=== PATIENT | female | born 1995 | race Hispanic/Latino ===

== ENCOUNTER 2016-09-24 11:30 | Outpatient (CLI) | payer OTHER ==
[~2016-09-24] VITALS: Ht 157.5 cm; Wt 65.8 kg
[2016-09-24 11:45] VITALS: BP 125/54
[2016-09-24 13:10] VITALS: BP 117/63
[2016-09-24] MEDS ORDERED: PNV91TAB3 PO (13:46)
[2016-09-24 14:05] VITALS: BP 117/63
--- NOTE | 2016-10-01 09:30 | Physician Query-Final Dx ---
SARI SHOEMAKER 10/01/16 0930: Clinic Account Progress/Dx Physician Query: Please give diagnosis Date of Service Progress Note: Sari [phone] MICHELA ROMO MD 10/01/16 1743: Clinic Account Progress/Dx DIAGNOSIS: Diagnosis Labor contractions SARI SHOEMAKER Oct 01, 2016 09:30 MICHELA ROMO MD Oct 01, 2016 17:43
--- OUTSIDE RECORDS SUMMARY | 2016-10-10 15:17 | XMS REPORT | Continuity of Care Document ---
Author Author [facility] Organization [facility] Address Unknown Phone Unavailable Care Team Providers Care Brand Advocate Name Role Phone MICHELA ROMO MD PCP Insurance Providers Payer Name Policy Number Subscriber Name Relationship Self Pay Pending Magdalena Apprv [id number] Momo Estrada 18 Self / Same As Patient Advance Directives Directive Response Recorded Date/Time Advance Directives No 09/25/16 9:45am Health Care Power of Collections Representative No 09/25/16 9:45am Organ Donor No 09/25/16 9:45am Resuscitation Status Full Code 09/25/16 9:45am Chief Complaint and Reason for Visit Chief Complaint LEAKING FLUID,CONTRACTIONS Reason for Visit Blood type O+ anemia Rubella immune Second-degree perineal laceration during delivery Spontaneous vaginal delivery Problems Active Problems Medical Problem Onset Date Status Blood type O+ Unknown Acute anemia Unknown Acute Rubella immune Unknown Acute Second-degree perineal laceration during delivery Unknown Acute Spontaneous vaginal delivery Unknown Acute Medications Current Home Medications Medication Dose Units Route Directions Days/Qty Instructions Start Date Pnv95/Ferrous Fumarate/Fa 1 Each 1 Each Oral Daily 09/24/16 Ferrous Sulfate 325 Mg 325 Mg Oral Daily@07 30 09/27/16 Ibuprofen 600 Mg 600 Mg Oral Every 6 Hours as needed for Pain 60 09/27 Social History Social History Problem Response Recorded Date/Time Alcohol Use Denies Use 09/25/2016 11:27am Recreational Drug Use No 09/25/2016 11:27am Sexually Transmitted Disease No 09/25/2016 11:27am HIV/AIDS No 09/25/2016 11:27am Smoking Status Never a Smoker 09/25/2016 9:45am Sexually Transmitted Disease No 09/25/2016 11:27am Query Response Start Date Stop Date Smoking Status Never a Smoker Hospital Discharge Instructions Patient Instructions Physician Instructions New, Converted or Re-Newed RX: RX on Chart Goal/Follow Up: Follow up with Dr. Romo in 6 weeks for visit. Activity: Activity as Tolerated (avoid strenuous activity x 6 weeks) Driving Instructions: You May Drive Discharge Diet: Regular Diet Symptoms to Report to : Swelling Increased, Bleeding Excessive, Fever Over 101 Degrees F, Pain/Pressure in Chest, Cramps in Feet or Legs, Vaginal Discharge Foul, Dizziness/Fainting, Shortness of Breath For Any Problems or Questions: Contact Your Physician Care Plan Goal:: Follow up with Dr. Romo in 6 weeks for visit. Plan of Care Discharge Date 09/27/16 3:07pm Disposition 01 HOME, SELF-CARE Instructions/Education Provided VAGINAL DELIVERY DISCHARGE Prescriptions See Medication Section Referrals (Unspecified) - Reason(s) for Referral: Please call the [facility] at to schedule your 6 week follow up appointment with Dr. oRmo. Care Plan and Goals See Discharge Instructions Section Functional Status Query Response Date Recorded Patient Orientation Person Place Time Situation Normal For Age September 27, 2016 3:42pm Allergies, Adverse Reactions, Alerts No known allergies. Immunizations No immunization records. Vital Signs Acute Vital Signs Vital Response Date/Time Temperature (Fahrenheit) 98.6 degrees F (97.6 - 99.5) 09/27/2016 8:57am Temperature (Calculated Celsius) 37.39472 degrees C (36.4 - 37.5) 09/27/2016 8:57am Temperature Source Temporal 09/27/2016 1:07pm Pulse Rate (adult) 73 bpm (60 - 90) 09/27/2016 8:57am Respiratory Rate 18 bpm (12 - 24) 09/27/2016 8:57am O2 Sat by Pulse Oximetry 98 % (88 - 100) 09/27/2016 8:57am Blood Pressure 104/70 mm Hg 09/27/2016 8:57am Blood Pressure Mean 81 mm Hg 09/27/2016 8:57am Pain Numeric Pain Scale 0-No Pain 09/27/2016 1:07pm Height (Feet) 5 feet 09/25/2016 9:46am Height (Inches) 2.00 inches 09/25/2016 9:46am Height (Calculated Centimeters) 157.760358 cm 09/25/2016 9:46am Weight (Pounds) 144 pounds 09/25/2016 9:46am Weight (Ounces) 0.0 oz 09/25/2016 9:46am Weight (Calculated Grams) 59837.30 gm 09/25/2016 9:46am Weight (Calculated Kilograms) 65.563133 kilograms 09/25/2016 9:46am Calculated BMI 26.3 09/25/2016 9:46am Results Pending Laboratory Results Test Name Collection Date/Time Procedures No known history of procedures. Encounters Encounter Location Arrival/Admit Date Discharge/Depart Date Attending Provider Admitted Inpatient [facility] 09/25/16 9:59am LAWRENCE IBRAHIM DO Discharged Inpatient (obs) [facility] 09/24/16 11:30am 09/24/16 1:30pm MICHELA ROMO MD Recent Diagnosis Blood type O+ anemia Rubella immune Second-degree perineal laceration during delivery Spontaneous vaginal delivery
== END 2016-09-24 13:30 | disposition home or self-care (01) ==
LOC: LDRP 11:30 → UNDOADMOB 11:30 → WSo 11:30 → UNDOADMOB 11:34 → LDRP 11:34 → WSo 13:30 → UNDODISOB 13:30 → EDSTATUS 15:14
PROVIDERS: ATTEND Family Medicine
DX: O47.1 False labor at or after 37 completed weeks of gestation (principal); Z3A.39 39 weeks gestation of pregnancy
CPT/HCPCS: 99211; G0378

== ENCOUNTER 2016-09-25 09:38 | Inpatient (IN) | payer MEDICAID, OTHER ==
[~2016-09-25] VITALS: Ht 157.5 cm; Wt 65.3 kg
[2016-09-25] VITALS (23 sets, daily range): BP systolic 96–183; BP diastolic 51–92
[~2016-09-25 09:38] MED LIST: PNV91TAB3 PO
[2016-09-25] MEDS ORDERED: MINERAL OIL CONCENTRATE 99.9% 15 ML UDC TOP PRN (10:00)
[2016-09-25] MEDS ORDERED: D5 LR IV SOLUTION 1,000 ML IV SCH (10:00)
[2016-09-25 10:30] LABS: BASOPHILS % (AUTO) 0 % (0-10); EOSINOPHILS % (AUTO) 0 % (0-10); LYMPHOCYTES # (AUTO) 1.3 X 10^3 (1.0-4.0); LYMPHOCYTES % (AUTO) 15 % (12-44); MEAN CORPUSCULAR HEMOGLOBIN 29 PG (25-34); MEAN CORPUSCULAR HGB CONC 33 G/DL (32-36); MEAN CORPUSCULAR VOLUME 87 FL (80-99); MEAN PLATELET VOLUME 11.5 FL (7.4-10.4); MONOCYTES # (AUTO) 0.7 X 10^3 (0.0-1.0); MONOCYTES % (AUTO) 7 % (0-12); NEUTROPHILS # (AUTO) 6.9 X 10^3 (1.8-7.8); NEUTROPHILS % (AUTO) 77 % (42-75); PLATELET COUNT 150 10^3/uL (130-400); RED BLOOD COUNT 4.04 10^6/uL (4.35-5.85); RED CELL DISTRIBUTION WIDTH 15.1 % (10.0-14.5)
[2016-09-25] MEDS ORDERED: BUTORPHANOL INJ 2 MG/ML (STADOL) VIAL IV NR (10:30)
[2016-09-25] MEDS ORDERED: CATHETER FLUSH 10 ML SYR IV SCH ×2 (14:00→22:00)
[2016-09-25] MEDS ORDERED: BUTORPHANOL INJ 2 MG/ML (STADOL) VIAL IV ONE (15:15)
[2016-09-25] MEDS ORDERED: LIDOCAINE/EPI 1%-1:200,000 (XYLOCAINE) 30 ML VIAL ONE (15:29)
[2016-09-25] MEDS ORDERED: OXYTOCIN/NORMAL SALINE 500 ML IV ONE ×3 (15:29→18:06)
[2016-09-25] MEDS: SODIUM CHLORIDE IV NR ×3 (17:02→18:05)
[2016-09-25] MEDS: OXYTOCIN IV NR ×3 (17:02→18:05)
--- NOTE | 2016-09-25 18:14 | History & Physicial ([facility]) ---
HPI History of Present Illness: Rupture of membranes 1 hr prior to arrival. Contractions started yesterday. 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 Exam Limitations: language barrier Date seen by provider: Sep 25, 2016 Attending Physician Aubree Acosta Holly R MD Consult Date of Admission Sep 25, 2016 at 09:59 Home Medications Home Medications Reviewed patient Home Medication Reconciliation Form Allergies Coded Allergies: No Known Drug Allergies (Unverified , 09/24/16) CMA-Cozwqe-Kftwrq Hx Patient Social History Alcohol Use: Denies Use Recreational Drug Use: No Smoking Status: Never a Smoker Physical Abuse Screen: No Sexual Abuse: No Immunizations Up To Date Date of Influenza Vaccine: Jun 02, 2016 Past Medical History None Family Medical History Family History: Patient reports no known family medical history. Review of Systems ([facility]) Constitutional: no symptoms reported Respiratory: No cough, No dyspnea on exertion, No short of breath Cardiovascular: No chest pain, No edema, No palpitations Gastrointestinal: abdominal pain nausea Genitourinary: no symptoms reportedNo dysuria : Yes Expected Date of Delivery: Sep 30, 2016 Musculoskeletal: no symptoms reported Skin: no symptoms reported Psychiatric/Neurological: No Symptoms Reported Reviewed Test Results Reviewed Test Results Lab Laboratory Tests Test 09/25/16 10:10 Range/Units Basophils # (Auto) 0.0 0.0-0.1 10^3/uL Basophils (%) (Auto) 0 0-10 % Eosinophils # (Auto) 0.0 0.0-0.3 10^3/uL Eosinophils (%) (Auto) 0 0-10 % Hematocrit 35 35-52 % Hemoglobin 11.6 11.5-16.0 G/DL Lymphocytes # (Auto) 1.3 1.0-4.0 X 10^3 Lymphocytes (%) (Auto) 15 12-44 % Mean Corpuscular Hemoglobin 29 25-34 PG Mean Corpuscular Hemoglobin Concent 33 32-36 G/DL Mean Corpuscular Volume 87 80-99 FL Mean Platelet Volume 11.5 H 7.4-10.4 FL Monocytes # (Auto) 0.7 0.0-1.0 X 10^3 Monocytes (%) (Auto) 7 0-12 % Neutrophils # (Auto) 6.9 1.8-7.8 X 10^3 Neutrophils (%) (Auto) 77 H 42-75 % Platelet Count 150 130-400 10^3/uL Red Blood Count 4.04 L 4.35-5.85 10^6/uL Red Cell Distribution Width 15.1 H 10.0-14.5 % White Blood Count 9.0 4.3-11.0 10^3/uL Physical Exam-([facility]) Physical Exam Vital Signs VS - Last 72 Hours, by Label 09/25/16 09/25/16 09/25/16 09/25/16 09:45 10:30 11:00 11:05 Temp 97.9 97.2 Pulse 100 77 77 71 Resp 18 18 18 18 B/P 123/74 96/51 96/51 108/71 Pulse Ox 98 98 O2 Delivery Room Air Room Air Room Air Room Air 09/25/16 09/25/16 09/25/16 09/25/16 11:30 11:35 12:00 12:30 Pulse 78 Resp 18 B/P 106/68 O2 Delivery Room Air 09/25/16 09/25/16 09/25/16 09/25/16 12:35 13:00 13:30 14:00 Temp 97.1 Pulse 72 Resp 18 B/P 121/84 O2 Delivery Room Air 09/25/16 09/25/16 09/25/16 09/25/16 14:20 14:30 14:35 15:00 Temp 97.0 Pulse 71 75 Resp 18 18 B/P 125/84 114/67 O2 Delivery Room Air Room Air Capillary Refill : General Appearance: WD/WN no apparent distress HEENT: PERRL/EOMI Respiratory: chest non-tender lungs clear normal breath sounds no respiratory distress Cardiovascular: regular rate, rhythm no edema no gallop no JVD no murmur Gastrointestinal: normal bowel sounds non tender soft (Gravid) Extremities: no pedal edema no calf tenderness 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
[2016-09-25] MEDS ORDERED: WITCH HAZEL(TUCKS) 40 EA JAR TOP PRN (18:15)
[2016-09-25] MEDS ORDERED: BENZOCAINE/MENTHOL (DERMOPLAST) 56 ML CAN TP PRN (18:15)
[2016-09-25] MEDS ORDERED: MEASLES,MUMPS,RUBELLA 1 EA INJ SQ ONE (18:15)
[2016-09-25] MEDS ORDERED: TETANUS,DIPTH,PERTUSS P/F (BOOSTRIX) 0.5 ML VIAL IM ONE (18:15)
--- NOTE | 2016-09-25 18:21 | OB Labor & Delivery Record ---
Vag Delivery Note Vag Delivery Note Date of Delivery: 09/25/16 Preoperative Diagnosis: Sheila Meza is a (21 /Para 1 / 0, Gestational Age (wks)39.2 Postoperative Diagnosis: Same Surgeon: MICHELA ROMO Dado Operator: [None] Anesthesia: [IV pain medication] Delivery Type: [] Findings: [Term female infant, Meconium delivery] Viable Female infant, apgars [6/8], weight [2825 gram, 6#4] Lacerations: 2nd Degree and Right vaginal laceration repaired with 3-0 Intact placenta with 3 vessel cord. No nuchal cord, body cord or shoulder dystocia Pitocin started with delivery of infant Estimated Blood Loss: [350] ml Complications: Meconium Condition: Stable Description of Procedure: The patient is a 21 yo G1 @ 39.2 wga who presented in active labor following rupture of membranes. She was admitted and informed consent was obtained. Her labor course was remarkable for Meconium. She progressed to complete dilatation and began to push. She was then set up for delivery. The infant's head was delivered atraumatically in the CLARA position. The shoulders and remainder of the 's body were then delivered without difficulty. Upon delivery, the head was held below the level of the perineum and the mouth and nares were bulb suctioned. The cord was doubly clamped and cut and the infant was handed off to the pediatric staff. An intact placenta with 3-vessel cord delivered via Melvin @ 1706 and there was found to be minimal bleeding.~ Vigorous fundal massage was performed and the fundus was found to be firm. IV oxytocin was given. Examination of the vagina and perineum revealed a 2nd Degree laceration and R vaginal laceration repaired in the usual fashion with 3-0 vicryl suture. Following the repair, sponge, instrument and needle counts were correct. Mom and baby were both in stable condition in the labor suite. Vitals - Labs Vital Signs - I&O Vital Signs Date Time Temp Pulse Resp B/P Pulse Ox O2 Delivery O2 Flow Rate FiO2 09/25/16 15:00 09/25/16 14:35 75 18 114/67 Room Air 09/25/16 14:30 09/25/16 14:20 97.0 71 18 125/84 Room Air 09/25/16 14:00 09/25/16 13:30 09/25/16 13:00 09/25/16 12:35 97.1 72 18 121/84 Room Air 09/25/16 12:30 09/25/16 12:00 09/25/16 11:35 78 18 106/68 Room Air 09/25/16 11:30 09/25/16 11:05 97.2 71 18 108/71 Room Air 09/25/16 11:00 77 18 96/51 98 Room Air 09/25/16 10:30 77 18 96/51 98 Room Air 09/25/16 09:45 97.9 100 18 123/74 Room Air Labs Laboratory Tests 09/25/16 10:10: Basophils # (Auto) 0.0, Basophils (%) (Auto) 0, Eosinophils # (Auto) 0.0, Eosinophils (%) (Auto) 0, Hematocrit 35, Hemoglobin 11.6, Lymphocytes # (Auto) 1.3, Lymphocytes (%) (Auto) 15, Mean Corpuscular Hemoglobin 29, Mean Corpuscular Hemoglobin Concent 33, Mean Corpuscular Volume 87, Mean Platelet Volume 11.5H, Monocytes # (Auto) 0.7, Monocytes (%) (Auto) 7, Neutrophils # ( Auto) 6.9, Neutrophils (%) (Auto) 77H, Platelet Count 150, Red Blood Count 4.04L , Red Cell Distribution Width 15.1H, White Blood Count 9.0 MICHELA ROMO MD Sep 25, 2016 18:21
[2016-09-25] MEDS: IBUPROFEN 600 MG (MOTRIN) TAB PO SCH (18:50)
[2016-09-25] MEDS: DOCUSATE SODIUM 100 MG (COLACE) CAP PO SCH (21:00)
[2016-09-26 01:16] VITALS: BP 116/73
[2016-09-26] MEDS: IBUPROFEN 600 MG (MOTRIN) TAB PO SCH ×4 (01:16→21:24)
[2016-09-26 04:55] VITALS: BP 106/67
[2016-09-26 06:13] LABS: BASOPHILS % (AUTO) 0 % (0-10); EOSINOPHILS # (AUTO) 0.1 10^3/uL (0.0-0.3); EOSINOPHILS % (AUTO) 1 % (0-10); LYMPHOCYTES # (AUTO) 2.4 X 10^3 (1.0-4.0); LYMPHOCYTES % (AUTO) 21 % (12-44); MEAN CORPUSCULAR HGB CONC 34 G/DL (32-36); MEAN CORPUSCULAR VOLUME 88 FL (80-99); MEAN PLATELET VOLUME 11.4 FL (7.4-10.4); MONOCYTES # (AUTO) 0.7 X 10^3 (0.0-1.0); MONOCYTES % (AUTO) 6 % (0-12); NEUTROPHILS # (AUTO) 8.1 X 10^3 (1.8-7.8); NEUTROPHILS % (AUTO) 72 % (42-75); PLATELET COUNT 128 10^3/uL (130-400); RED BLOOD COUNT 2.92 10^6/uL (4.35-5.85); RED CELL DISTRIBUTION WIDTH 15.2 % (10.0-14.5); WHITE BLOOD COUNT 11.3 10^3/uL (4.3-11.0)
[2016-09-26 06:17] LABS: MEAN CORPUSCULAR HEMOGLOBIN 29 PG (25-34)
--- NOTE | 2016-09-26 08:06 | Progress Note (SOAP) ---
Subjective Subjective/Events-last exam Afebrile, no acute events. She reports pain is mild. Objective Exam Last Set of Vital Signs Vital Signs Date Time Temp Pulse Resp B/P Pulse Ox O2 Delivery O2 Flow Rate FiO2 09/26/16 04:55 98.1 78 18 106/67 98 Room Air Capillary Refill : General: Alert Lungs: Clear to Auscultation, Normal Air Movement Heart: Regular Rate, No Murmurs Abdomen: Other (fundus firm below umbilicus) Extremities: No Edema Psych/Mental Status: Mental Status NL Results/Procedures Lab Laboratory Tests 09/25/16 10:10: Basophils # (Auto) 0.0, Basophils (%) (Auto) 0, Eosinophils # (Auto) 0.0, Eosinophils (%) (Auto) 0, Hematocrit 35, Hemoglobin 11.6, Lymphocytes # (Auto) 1.3, Lymphocytes (%) (Auto) 15, Mean Corpuscular Hemoglobin 29, Mean Corpuscular Hemoglobin Concent 33, Mean Corpuscular Volume 87, Mean Platelet Volume 11.5H, Monocytes # (Auto) 0.7, Monocytes (%) (Auto) 7, Neutrophils # ( Auto) 6.9, Neutrophils (%) (Auto) 77H, Platelet Count 150, Red Blood Count 4.04L , Red Cell Distribution Width 15.1H, White Blood Count 9.0 09/26/16 05:40: Basophils # (Auto) 0.0, Basophils (%) (Auto) 0, Eosinophils # (Auto) 0.1, Eosinophils (%) (Auto) 1, Hematocrit 26L, Hemoglobin 8.6#L, Lymphocytes # (Auto ) 2.4, Lymphocytes (%) (Auto) 21, Mean Corpuscular Hemoglobin 29, Mean Corpuscular Hemoglobin Concent 34, Mean Corpuscular Volume 88, Mean Platelet Volume 11.4H, Monocytes # (Auto) 0.7, Monocytes (%) (Auto) 6, Neutrophils # ( Auto) 8.1H, Neutrophils (%) (Auto) 72, Platelet Count 128L, Red Blood Count 2.92L, Red Cell Distribution Width 15.2H, White Blood Count 11.3H Assessment/Plan Assessment/Plan Admission Dx 21 yo G1 @ 39.2 wga admitted for Active Labor Plan See problem list Diagnosis/Problems: (1) Spontaneous vaginal delivery Assessment & Plan: Routine care (2) Second-degree perineal laceration during delivery (3) Blood type O+ Assessment & Plan: no need for rhogam (4) Rubella immune Assessment & Plan: no need for MMR (5) anemia Assessment & Plan: Iron sulfate daily Clinical Quality Measures DVT/VTE Risk/Contraindication: Risk Factor Score Per Nursin RFS Level Per Nursing on Admit: 1=Low/No VTE PPX MORIAH ZAMORANO MD Sep 26, 2016 8:06 am
[2016-09-26 12:03] VITALS: BP 106/67
[2016-09-26] MEDS: DOCUSATE SODIUM 100 MG (COLACE) CAP PO SCH ×2 (12:07→21:35)
[2016-09-26] MEDS: FERROUS SULF 325 MG (IRON) TAB PO SCH (12:07)
[2016-09-26] MEDS: PRENATAL VITAMIN 1 EA TAB PO SCH (12:07)
[2016-09-26 12:47] VITALS: BP 103/62
[2016-09-26 17:09] VITALS: BP 94/53
[2016-09-26 21:35] VITALS: BP 103/61
[2016-09-27 00:16] VITALS: BP 118/76
[2016-09-27] MEDS: IBUPROFEN 600 MG (MOTRIN) TAB PO SCH ×3 (00:16→12:46)
[2016-09-27 06:15] VITALS: BP 116/69
[2016-09-27] MEDS: FERROUS SULF 325 MG (IRON) TAB PO SCH (08:55)
[2016-09-27] MEDS: DOCUSATE SODIUM 100 MG (COLACE) CAP PO SCH (08:55)
[2016-09-27] MEDS: PRENATAL VITAMIN 1 EA TAB PO SCH (08:55)
[2016-09-27 08:57] VITALS: BP 104/70
--- NOTE | 2016-09-27 13:44 | Discharge Summary ---
Diagnosis/Chief Complaint Date of Admission Sep 25, 2016 at 9:59 am Date of Discharge Sep 27, 2016 Admission Diagnosis Admission Diagnosis 21 yo G1 @ 39.2 wga admitted for Active Labor Discharge Diagnosis Spontaneous vaginal delivery Second degree perineal laceration repair anemia Chief Complaint/HPI Chief Complaint/HPI Rupture of membranes 1 hr prior to arrival. Contractions started yesterday. Discharge Summary-Simple/Stand Procedures Spontaneous vaginal delivery Second degree perineal laceration repair Consultations Discharge Physical Examination Allergies: Coded Allergies: No Known Drug Allergies (Unverified , 09/24/16) Vitals & I&Os Vital Sign - Last 12Hours Date Time Temp Pulse Resp B/P Pulse Ox O2 Delivery O2 Flow Rate FiO2 09/27/16 08:57 98.6 73 18 104/70 98 Room Air General Appearance: Alert, No Acute Distress Respiratory: Clear to Auscultation, Normal Air Movement Cardiovascular: Regular Rate, No Murmurs Abdominal: Soft, No Tenderness, Other (fundus firm below umbilicus) Neuro: Normal Speech Hospital Course See final discharge diagnosis. Labs Laboratory Tests Test 09/26/16 05:40 Range/Units Basophils # (Auto) 0.0 0.0-0.1 10^3/uL Basophils (%) (Auto) 0 0-10 % Eosinophils # (Auto) 0.1 0.0-0.3 10^3/uL Eosinophils (%) (Auto) 1 0-10 % Hematocrit 26 L 35-52 % Hemoglobin 8.6 #L 11.5-16.0 G/DL Lymphocytes # (Auto) 2.4 1.0-4.0 X 10^3 Lymphocytes (%) (Auto) 21 12-44 % Mean Corpuscular Hemoglobin 29 25-34 PG Mean Corpuscular Hemoglobin Concent 34 32-36 G/DL Mean Corpuscular Volume 88 80-99 FL Mean Platelet Volume 11.4 H 7.4-10.4 FL Monocytes # (Auto) 0.7 0.0-1.0 X 10^3 Monocytes (%) (Auto) 6 0-12 % Neutrophils # (Auto) 8.1 H 1.8-7.8 X 10^3 Neutrophils (%) (Auto) 72 42-75 % Platelet Count 128 L 130-400 10^3/uL Red Blood Count 2.92 L 4.35-5.85 10^6/uL Red Cell Distribution Width 15.2 H 10.0-14.5 % White Blood Count 11.3 H 4.3-11.0 10^3/uL Discharge Instructions to patient/family Please see electonic discharge instructions given to patient. Discharge Medications Reviewed and agree with Discharge Medication list on patient's Discharge Instruction sheet Clinical Quality Measures DVT/VTE Risk/Contraindication: Risk Factor Score Per Nursin RFS Level Per Nursing on Admit: 1=Low/No VTE PPX Copy Copies To 1: MICHELA ROMO MD, BETHANY N MD Sep 27, 2016 1:44 pm
[2016-09-27] MEDS ORDERED: FERR-74 PO (13:46)
[2016-09-27] MEDS ORDERED: IBUP-1773 PO (13:46)
--- NOTE | 2016-09-27 13:47 | Discharge Instructions ---
Discharge Inst-Women's Serv Depart Medications New, Converted or Re-Newed RX: RX on Chart New Medications: Ferrous Sulfate (Ferrous Sulfate) 325 Mg Tablet 325 MG PO DAILY@07 #30 Ref 0 TAB Ibuprofen (Ibuprofen) 600 Mg Tablet 600 MG PO Q6H PRN PAIN #60 Ref 0 TAB Continued Medications: Pnv95/Ferrous Fumarate/FA ( Caplet) 1 Each Tablet 1 EACH PO DAILY TAB Follow Up/Instructions Goal/Follow Up: Follow up with Dr. Loera in 6 weeks for visit. Activity Activity: Activity as Tolerated (avoid strenuous activity x 6 weeks) Driving Instructions: You May Drive Diet Discharge Diet: Regular Diet Symptoms to Report to : Swelling Increased, Bleeding Excessive, Fever Over 101 Degrees F, Pain/Pressure in Chest, Cramps in Feet or Legs, Vaginal Discharge Foul, Dizziness/Fainting, Shortness of Breath For Any Problems or Questions: Contact Your Physician Copies To 1: MICHELA LOERA MDOCHMORIAH MD Sep 27, 2016 1:47 pm
[2016-09-27 14:55] VITALS: BP 133/74
--- NOTE | 2016-09-29 12:02 | Physician Query ---
PQ-Further Specificity Admission/Discharge Admission Date: Sep 25, 2016 at 09:59 Discharge Date: Sep 27, 2016 at 15:07 The medical record reflects the following clinical scenario: History/Risk Factors: 350ml blood loss during delivery Clinical Findings: 09/25 before delivery- hgb 11.6 - 09/26 after delivery 8.6 Treatment: ferrous sulfate Question: Can you further specify Anemia per the clinical indicators above? Please document below. 1. Anemia due to acute blood loss 2. Anemia unspecified 3. Other, with explanation of the clinical findings. 4. Clinically undetermined, no explanation for the clinical findings. Can you specify per above: 1 Please remember a lack of response to the above will prompt a phone page by CDI/ coding staff. In responding to this query, please exercise your independent professional judgment. The purpose of this communication is to more accurately reflect the complexity of your patients condition. The fact that a question is asked does not imply that any particular answer is desired or expected. Thank you for your timely response to this clarification. Requestors name: [ ] Phone # [ ] THIS PHYSICIAN QUERY FORM IS A PERMANENT PART OF THE MEDICAL RECORD KENNY CRUZ Sep 29, 2016 12:01 MORIAH ZAMORANO MD Oct 09, 2016 21:12
== END 2016-09-27 15:07 | disposition home or self-care (01) | DRG 775 ==
LOC: LDRP 09:38 → WSo 09:38 → LDRP 09:59 → WSo 09:59 → LDRP 20:15
PROVIDERS: ADMIT Family Medicine; ATTEND Family Medicine
PROC: 10E0XZZ Delivery of Products of Conception, External Approach (ICD-10-PCS; principal; 2016-09-25)
PROC: 0KQM0ZZ Repair Perineum Muscle, Open Approach (ICD-10-PCS; 2016-09-25)
DX: O70.1 Second degree perineal laceration during delivery (principal); O90.81 Anemia of the puerperium; D62 Acute posthemorrhagic anemia; Z3A.39 39 weeks gestation of pregnancy; Z37.0 Single live birth
CPT/HCPCS: 36415; 85025; 86850; 86900; 86901; 88307; 99212